=== PATIENT | male | born 2000 | race Caucasian/White ===

== ENCOUNTER 2022-02-20 12:30 | Outpatient (REF) | payer OTHER, SELFPAY ==
[2022-02-20 13:58] LABS: MANUAL DIFF FLAG NO
[2022-02-20 14:06] LABS: Basophils Absolute Auto 0.1 X10*3/uL (0.0-0.2); Basophils Percent Auto 0.8 % (0-2); Eosinophils Absolute Auto 0.1 X10*3/uL (0.0-0.4); Hematocrit 48.3 % (42.0-52.0); Hemoglobin 16.3 g/dl (14.0-18.0); Imm Gran Abs Auto 0.01 X10*3/uL (0.00-0.03); Imm Gran Pct Auto 0.2 % (0.0-0.4); Lymphocytes Absolute Auto 2.4 X10*3/uL (1.2-4.9); Lymphocytes Percent Auto 39.5 % (20-40); Mean Corpuscular HGB Conc 33.7 g/dl (31.0-36.0); Mean Corpuscular Hemoglobin 29.9 pg (27.0-33.0); Mean Corpuscular Volume 88.5 fL (80.0-98.0); Mean Platelet Volume 11.2 fL (9.4-12.4); Monocytes Absolute Auto 0.6 X10*3/uL (0.1-1.2); Neutrophils Percent Auto 48.5 % (45-73); Platelet Count 281 X10*3/uL (160-400); Red Blood Count 5.46 X10*6/uL (4.60-5.80); Red Cell Distribution Width 12.4 % (11.0-16.0); White Blood Count 6.1 X10*3/uL (4.8-10.8)
[2022-02-20 15:05] LABS: Alanine Aminotransferase 41 U/L (0-40); Albumin Level 4.2 g/dL (3.5-5.0); Alkaline Phosphatase 76 U/L (39-117); Anion Gap 14 (12-20); Aspartate Amino Transferase 18 U/L (5-37); Bilirubin Total 0.4 mg/dL (0.0-1.0); Blood Urea Nitrogen 12 mg/dL (9-16); Calcium 9.8 mg/dL (8.4-10.2); Carbon Dioxide 23 mmol/L (22-29); Chloride 107 mmol/L (96-108); Estimated Glomerular Filt Rate > 60; Glucose Random 118 mg/dL (60-115); Potassium 4.4 mmol/L (3.3-5.1); Sodium 140 mmol/L (135-145); Total Protein 7.3 g/dL (6.5-8.0)
[2022-02-20 16:08] LABS: Amphetamine Screen Urine POSITIVE (Not Detect); Barbiturates, Urine Not Detected (Not Detect); Benzodiazepines Screen Urine Not Detected (Not Detect); Cannabinoid Screen Urine Not Detected (Not Detect); Cocaine Screen Urine Not Detected (Not Detect); Fentanyl, urine Not Detected (Not Detect); Opiate Screen Urine Not Detected (Not Detect); Phencyclidine Screen Urine Not Detected (Not Detect)
[2022-02-27 08:03] LABS: Codeine, Ur NEGATIVE; Hydrocodone, Ur NEGATIVE; Hydromorphone, Ur NEGATIVE; Morphine, Ur NEGATIVE; Norhydrocodone, Ur NEGATIVE; Noroxycodone, Ur NEGATIVE; Oxycodone, Ur NEGATIVE; Oxymorphone, Ur NEGATIVE
[2022-02-27 10:31] LABS: EDDP (Methadone Metabolite) negative; Methadone, Urine MS negative
== END 2022-02-20 12:31 | disposition home or self-care (01) ==
LOC: HO.HMGCLDS 12:30
PROVIDERS: PCP Registered Nurse Psychiatric/Mental Health, Child & Adolescent; Visit Provider Nurse Practitioner Psychiatric/Mental Health
DX: Z51.81 Encounter for therapeutic drug level monitoring (principal); Z79.899 Other long term (current) drug therapy
CPT/HCPCS: 80053; 80307; 80358; 80364; 80365; 85025

== ENCOUNTER 2022-03-27 08:36 | Outpatient (REF) | payer OTHER, SELFPAY ==
[2022-04-03 08:30] LABS: Lithium < 0.10 mmol/L (0.60-1.20)
== END 2022-03-27 08:37 | disposition home or self-care (01) ==
LOC: HO.HMGCLDS 08:36
PROVIDERS: Visit Provider Nurse Practitioner Psychiatric/Mental Health
DX: Z79.899 Other long term (current) drug therapy (principal)
CPT/HCPCS: 36415; 80178

== ENCOUNTER 2024-04-03 13:44 | Emergency (ER) | payer OTHER, SELFPAY ==
--- NOTE | ~2024-04-03 | US_ITS ---
EXAMINATION: US ABDOMEN LIMITED CLINICAL INFORMATION: Upper abdominal pain. COMPARISON: None available. TECHNIQUE: Real-time imaging of the right upper quadrant abdominal viscera. The examination is partially limited by patient body habitus. FINDINGS: PANCREAS: Normal. LIVER: The liver is diffusely hyperechoic and this limits evaluation of the deeper tissues. No sonographic evidence of focal lesion or intrahepatic ductal dilatation. GALLBLADDER: Normal. The gallbladder is physiologically distended without evidence of stones, sludge, polyps, wall thickening or pericholecystic fluid. COMMON BILE DUCT: The common duct is not optimally seen. The suspected common duct is 0.5 cm diameter. RIGHT KIDNEY: Grossly normal. No hydronephrosis. No renal calculi or focal parenchymal lesions. The kidney measures 11.5 cm in maximum dimension. FREE FLUID: None. US/US abdomen limited IMPRESSION: * Diffuse hepatic steatosis. * No acute sonographic abnormalities. No evidence of cholelithiasis, cholecystitis or biliary tract obstruction.
[2024-04-03 14:04] VITALS: BP 129/80; PULSE 84; RESP 16; TEMP 37.1; O2SAT 96; BMI 47.7
--- NOTE | 2024-04-03 14:04 | ED.ABDPAIN ---
HPI - Abdominal Pain General Chief Complaint: Abdominal Pain Stated Complaint: Abd pain 5 days Time Seen by Provider: 04/03/24 15:49 Source: patient Mode of arrival: ambulatory Limitations: no limitations History of Present Illness ED Provider: Salvador Biswas NP HPI narrative: Patient is a 23-year-old male who presents to the emergency department for evaluation of intermittent epigastric pain that typically last a few hours. It is experienced at night while lying down. He states that he typically eats dinner around 9 or 10 at night and his symptoms began soon after when he is lying down. It is described as a burning sensation. He admits to having heartburn during the day for which he will typically take Tums. He denies associated fevers, chills, nausea, vomiting, diarrhea. He reports that he was seen at [facility] 6 days ago for similar pain, that he believed to be secondary to constipation, however he admits to having daily bowel movements, he states he was offered to have imaging performed but denied as it was early in the morning by the time that he was seen, and his lab work was normal. Related Data Previous Rx's ?Medication ?Instructions ?Recorded omeprazole 20 mg capsule,delayed 20 mg PO DAILY #30 caps 04/03/24 release Allergies Allergy/AdvReac Type Severity Reaction Status Date / Time No Known Allergies Allergy Verified 04/03/24 15:19 Review of Systems Review of Systems Yes all other systems are reviewed and are negative PMFSH Past Medical History Attestation statement: The following information was validated with the patient. Source: old records reviewed Social History Social History Smoked in Last 30 Days: No Advance Directives: No Advance Directives Information Provided: No Do you have a plan to hurt others: No Plan Physical Exam ED Vital Signs: Vital Signs - 24 hr 04/03/24 14:04 04/03/24 15:16 04/03/24 15:23 Temperature 98.8 F 98.4 F 98.4 F Pulse Rate 84 87 87 Respiratory Rate 16 16 16 Blood Pressure 129/80 113/60 113/60 Pulse Oximetry 96 96 97 Oxygen Delivery Method Room Air Room Air Room Air 04/03/24 16:15 Temperature 98.1 F Pulse Rate 86 Respiratory Rate 16 Blood Pressure 121/76 Pulse Oximetry 94 Oxygen Delivery Method Room Air BMI result Body Mass Index 50.1 Appearance: Alert.?Oriented to person, place and time. No acute distress.?Normal affect. Eyes: Pupils equal, round and reactive to light.? ENT: Pharynx normal.?? Neck: Normal inspection.? Neck supple.?? CVS: Heart sounds normal. Normal heart rate and rhythm.? Pulses normal.?? Respiratory: No respiratory distress.? Lung sounds clear to auscultation bilaterally?? Abdomen: Soft and non-tender. No CVA tenderness. Negative Jin sign. Normoactive bowel sounds. No pulsatile mass.?? Skin: Skin warm and dry.? Normal skin color.?? Extremities: No lower extremity edema.? Neuro: Moves all extremities spontaneously. Sensation intact bilaterally. Ambulates with normal steady gait. Course Course Course Narrative: This is a Rapid Medical Exam performed in triage by Keily Romo PA-C. Full HPI, ROS and PE to be performed by primary ED provider. 23 year-old M w/ no sig PMHx presenting to the ED c/o upper abdominal pain x few days, described as ripping . Admits was seen at [facility] Sunday night for constipation. denies abd surgeries. denies N/V. admits to having regular BM's now. denies any imaging at [facility] labs were WNL PE: abdomen soft w/mild upper ttp. no rebound or guarding. nontoxic appearing. lower suspicion for dissection Plan: EKG, labs, UA, US ordered Medical Decision Making Medical Decision Making MDM Narrative: Patient is a 23-year-old male who presents to emergency department for evaluation of epigastric pain as per HPI. Overall he appears well, nontoxic, afebrile. He is without tachycardia tachypnea or hypoxia. He is speaking clear full sentences. Has no respiratory distress. He reports improvement in his pain at this time compared to his arrival to the ED no not completely resolved. His abdominal examination is benign he has no tenderness. On review of his labs CBC is without leukocytosis anemia or thrombocytopenia. No electrolyte derangement. No REGGIE. LFTs with mild elevation of ALT at 44, otherwise unremarkable. High sensitive troponin is within normal range. Urinalysis not consistent with urinary tract infection nor any microscopic hematuria. An ultrasound of the right upper quadrant was obtained, no acute biliary pathology, there is notation of fatty liver. Patient was made aware of these findings. He states that he plans to make significant changes to his diet in the near future as beginning a weight loss program. I suspect that his symptoms are most consistent with acid reflux/GERD, unlikely to be added ulcer. Patient received a GI cocktail in the department with resolution of symptoms and tolerating oral intake. Recommended course of antacid and outpatient follow-up with his primary care provider. He and his mother verbalized understanding. Discussed worrisome signs and symptoms that would warrant re-evaluation in the emergency department. Stable for discharge Differential Diagnosis Differential Diagnoses: The differential diagnosis associated with the presentation includes (See narrative above) Admission/Observation Consideration of admission/observation: Escalation of care including admission/observation considered (See narrative above) Lab Data MDM Lab Attestation statement: I reviewed the patient's lab results. (See narrative above) 04/03/24 14:42 04/03/24 14:42 Labs: Lab Results 04/03/24 04/03/24 Range/Units 14:42 14:47 WBC 7.3 (4.8-10.8) X10*3/uL RBC 5.46 (4.60-5.80) X10*6/uL Hgb 16.7 (14.0-18.0) g/dl Hct 46.8 (42.0-52.0) % MCV 85.7 (80.0-98.0) fL MCH 30.6 (27.0-33.0) pg MCHC 35.7 (31.0-36.0) g/dl RDW 12.4 (11.0-16.0) % Plt Count 289 (160-400) X10*3/uL MPV 10.4 (9.4-12.4) fL Immature Gran % (Auto) 0.1 (0.0-0.4) % Neut % (Auto) 55.4 (45-73) % Lymph % (Auto) 33.2 (20-40) % [place] % (Auto) 8.7 (2-11) % Eos % (Auto) 1.9 (0-4) % Baso % (Auto) 0.7 (0-2) % Lymph # (Auto) 2.4 (1.2-4.9) X10*3/uL [place] # (Auto) 0.6 (0.1-1.2) X10*3/uL Eos # (Auto) 0.1 (0.0-0.4) X10*3/uL Baso # (Auto) 0.1 (0.0-0.2) X10*3/uL Abs Immat Gran (auto) 0.01 (0.00-0.03) X10*3/uL Absolute Neuts (auto) 4.1 (2.0-8.3) x10*3/uL Absolute Nucleated RBC 0.000 (0.0-0.012) X10*3/uL Nucleated RBC % (auto) 0.0 (0.0-0.2) /100WBC Sodium 141 (135-145) mmol/L Potassium 3.8 (3.3-5.1) mmol/L Chloride 106 (96-108) mmol/L Carbon Dioxide 27 (22-29) mmol/L Anion Gap 12 (12-20) BUN 11 (9-16) mg/dL Creatinine 0.78 (0.5-1.4) mg/dL Estim Creat Clear Calc 199.5 Estimated GFR > 60 Random Glucose 106 (60-115) mg/dL Calcium 9.9 (8.4-10.2) mg/dL Magnesium 1.8 (1.6-2.6) mg/dL Total Bilirubin 0.6 (0.0-1.0) mg/dL Direct Bilirubin 0.2 (0.0-0.5) mg/dL AST 25 (5-37) U/L ALT 44 H (0-40) U/L Alkaline Phosphatase 67 (39-117) U/L Troponin I High Sens < 2.7 (<3.5-35.0) ng/L Total Protein 7.9 (6.5-8.0) g/dL Albumin 4.5 (3.5-5.0) g/dL Lipase 15 (8-78) U/L Urine Color Dark Yellow Urine Appearance Clear Urine pH 6.0 (5.0-9.0) Ur Specific [place] >= 1.030 H (1.005-1.025) Urine Protein Trace (Neg-Trace) mg/dL Urine Glucose (UA) Negative (Negative) mg/dL Urine Ketones Trace (Negative) mg/dL Urine Blood Negative (Negative) Urine Nitrite Negative (Negative) Ur Leukocyte Esterase Negative (Negative) Independent Interpretation I performed an independent interpretation of an: EKG and Ultrasound (No cholelithiasis) Interpretation: Rate: 84 Rhythm:? Normal sinus rhythm Normal P waves.? Normal BOSSMAN.?? Normal QRS complex.?? ST T wave :??No ST elevation depression, no T-wave inversion qTC: 382 The study has been interpreted contemporaneously by me. Radiology Impression Discussion of test interpretation with radiology: I have reviewed the radiologist's reading. Radiologist Impression: US/US abdomen limited IMPRESSION: * Diffuse hepatic steatosis. * No acute sonographic abnormalities. No evidence of cholelithiasis, cholecystitis or biliary tract obstruction. Independent Historian Clinical information obtained from an independent historian. History obtained from or confirmed by: Parent (Mother who confirms history) Prescription Management I considered prescription management with: Other (See narrative above) Discharge Plan Discharge Clinical Impression: Gastritis, Hepatic steatosis Patient Disposition: Home, Self-Care Instructions: Gastritis (ED), Diet for Stomach Ulcers and Gastritis (ED) Additional Instructions: Take Prilosec daily as prescribed for at least 2 weeks. Avoid triggers such as fatty foods, spicy foods, tomatoes, onions, coffee, tea, chocolate, and alcohol. Remaining upright after meals for 1-2 hours. Avoid eating at least 3 hours before bedtime. Try sleeping on an incline if possible. Follow-up with your primary care provider; make them aware of the fatty liver that was noted on ultrasound, and discuss with them any further symptoms after course of Prilosec. Return back to emergency department any new or worsening symptoms or concerns. Prescriptions: New omeprazole 20 mg capsule,delayed release(DR/EC) 20 mg PO DAILY Qty: 30 0RF Referrals: Physician,Unknown J [Primary Care Provider] - Print Language: [place]aguayan
--- NOTE | 2024-04-03 14:08 | ECG_ITS ---
Test Reason : abd pain Blood Pressure : / mmHG Vent. Rate : 084 BPM Atrial Rate : 084 BPM P-R Int : 124 ms QRS Dur : 094 ms QT Int : 324 ms P-R-T Axes : 027 008 031 degrees QTc Int : 382 ms Normal sinus rhythm Normal ECG No previous ECGs available Referred By: Keily Romo Electronically Signed By:Jose Miguel Martinez
[2024-04-03 14:57] LABS: MANUAL DIFF FLAG NO
[2024-04-03 14:59] LABS: Basophils Absolute Auto 0.1 X10*3/uL (0.0-0.2); Basophils Percent Auto 0.7 % (0-2); Eosinophils Absolute Auto 0.1 X10*3/uL (0.0-0.4); Eosinophils Percent Auto 1.9 % (0-4); Hematocrit 46.8 % (42.0-52.0); Hemoglobin 16.7 g/dl (14.0-18.0); Imm Gran Abs Auto 0.01 X10*3/uL (0.00-0.03); Imm Gran Pct Auto 0.1 % (0.0-0.4); Lymphocytes Absolute Auto 2.4 X10*3/uL (1.2-4.9); Lymphocytes Percent Auto 33.2 % (20-40); Mean Corpuscular HGB Conc 35.7 g/dl (31.0-36.0); Mean Corpuscular Hemoglobin 30.6 pg (27.0-33.0); Mean Corpuscular Volume 85.7 fL (80.0-98.0); Mean Platelet Volume 10.4 fL (9.4-12.4); Monocytes Absolute Auto 0.6 X10*3/uL (0.1-1.2); Monocytes Percent Auto 8.7 % (2-11); Neutrophils Absolute Auto 4.1 x10*3/uL (2.0-8.3); Neutrophils Percent Auto 55.4 % (45-73); Platelet Count 289 X10*3/uL (160-400); Red Blood Count 5.46 X10*6/uL (4.60-5.80); Red Cell Distribution Width 12.4 % (11.0-16.0); White Blood Count 7.3 X10*3/uL (4.8-10.8)
[2024-04-03 15:04] LABS: Appearance Urine Clear; Color Urine Dark Yellow; Glucose Urine UA Negative (Negative); Leukocyte Esterase Urine Negative (Negative); Nitrite Urine Negative (Negative); Specific Gravity - Urine >= 1.030 (1.005-1.025); Urine Blood Negative (Negative); Urine Ketones Trace mg/dL (Negative); Urine Protein Trace mg/dL (Neg-Trace)
[2024-04-03 15:13] LABS: Alanine Aminotransferase 44 U/L (0-40); Albumin Level 4.5 g/dL (3.5-5.0); Alkaline Phosphatase 67 U/L (39-117); Anion Gap 12 (12-20); Aspartate Amino Transferase 25 U/L (5-37); Bilirubin Direct 0.2 mg/dL (0.0-0.5); Bilirubin Total 0.6 mg/dL (0.0-1.0); Blood Urea Nitrogen 11 mg/dL (9-16); Calcium 9.9 mg/dL (8.4-10.2); Carbon Dioxide 27 mmol/L (22-29); Chloride 106 mmol/L (96-108); Creatinine Clr Calc Pharmacy 199.5; Estimated Glomerular Filt Rate > 60; Glucose Random 106 mg/dL (60-115); Lipase 15 U/L (8-78); Magnesium 1.8 mg/dL (1.6-2.6); Potassium 3.8 mmol/L (3.3-5.1); Sodium 141 mmol/L (135-145); Total Protein 7.9 g/dL (6.5-8.0)
[2024-04-03 15:16] VITALS: BP 113/60; PULSE 87; RESP 16; TEMP 36.9; O2SAT 96; BMI 50.1
[2024-04-03 15:21] LABS: Troponin-I High Sensitivity < 2.7 ng/L (<3.5-35.0)
[2024-04-03 15:23] VITALS: BP 113/60; PULSE 87; RESP 16; TEMP 36.9; O2SAT 97
--- NOTE | 2024-04-03 15:33 | PC.NURSE ---
Pt from waiting area, arrives with c/o abd pain. Pt states pain began on 03/28/24 and is intermittent. Pain fluctuates from a 4 up to a 9 and is a tearing feeling. A&Ox3, VSS, and afebrile. Labs pending. Pt is resting comfrtably in bed with mother at bedside.
[2024-04-03 16:15] VITALS: BP 121/76; PULSE 86; RESP 16; TEMP 36.7; O2SAT 94
[2024-04-03] MEDS: Famotidine 20 MG TABLET PO (16:41)
[2024-04-03] MEDS: Lidocaine HCl Viscous 2 % 15 ML SOLUTION MUCOUS MEM (16:41)
[2024-04-03] MEDS: Magnesium Hydrox/Alum Hydrox 30 ML ORAL.SUSP PO (16:41)
[2024-04-03 17:26] VITALS: BP 121/76; PULSE 86; RESP 16; TEMP 36.7
[2024-04-03 18:19] VITALS: BP 121/76; PULSE 86; RESP 16; TEMP 36.7
== END 2024-04-03 18:20 | disposition home or self-care (01) ==
PROVIDERS: Physician Assistant; Emergency Provider Internal Medicine
DX: K29.70 Gastritis, unspecified, without bleeding (principal); K76.0 Fatty (change of) liver, not elsewhere classified; R10.10 Upper abdominal pain, unspecified
CPT/HCPCS: 36415; 76705; 80048; 80076; 81003; 83690; 83735; 84484; 85025; 93005; 99284; 99285

== ENCOUNTER → 2024-04-03 14:08 | Outpatient (BNV) | payer OTHER, SELFPAY | PROVIDERS: Emergency Provider Internal Medicine; Visit Provider Internal Medicine Cardiovascular Disease | DX: R10.9 Unspecified abdominal pain (principal) | CPT/HCPCS: 93010 ==

== ENCOUNTER 2024-12-22 08:26 | Emergency (ER) | payer OTHER, SELFPAY ==
--- NOTE | ~2024-12-22 | XR_ITS ---
EXAMINATION: XR CHEST CLINICAL INFORMATION: cp COMPARISON: None available. TECHNIQUE: 2 views of the chest were obtained. FINDINGS: The cardiac, hilar, and mediastinal contours are normal. The lungs are clear bilaterally. There is no pneumothorax or pleural effusion. There is no focal osseous or soft tissue abnormality. XR/XR chest 2V IMPRESSION: Normal chest. Electronically signed by: Adeel Li MD 12/22/2024 09:08 AM EDT
[2024-12-22 08:50] VITALS: BP 140/86; PULSE 82; RESP 19; TEMP 36.6; O2SAT 98; BMI 40.9
--- NOTE | 2024-12-22 08:53 | ECG_ITS ---
Test Reason : CP Blood Pressure : */* mmHG Vent. Rate : 78 BPM Atrial Rate : 78 BPM P-R Int : 144 ms QRS Dur : 96 ms QT Int : 342 ms P-R-T Axes : 26 19 48 degrees QTcB Int : 389 ms Normal sinus rhythm Normal ECG When compared with ECG of 03-Apr-2024 14:32, No significant change was found Referred By: Generic ED Physician Electronically Signed By: KAMRAN BEAR
[2024-12-22 09:24] LABS: MANUAL DIFF FLAG NO
[2024-12-22 09:26] LABS: Basophils Absolute Auto 0.1 X10*3/uL (0.0-0.2); Basophils Percent Auto 0.8 % (0-2); Eosinophils Absolute Auto 0.2 X10*3/uL (0.0-0.4); Eosinophils Percent Auto 2.4 % (0-4); Hematocrit 46.8 % (42.0-52.0); Hemoglobin 16.4 g/dl (14.0-18.0); Imm Gran Abs Auto 0.02 X10*3/uL (0.00-0.03); Imm Gran Pct Auto 0.2 % (0.0-0.4); Lymphocytes Absolute Auto 4.1 X10*3/uL (1.2-4.9); Lymphocytes Percent Auto 47.6 % (20-40); Mean Corpuscular Hemoglobin 30.8 pg (27.0-33.0); Mean Corpuscular Volume 87.8 fL (80.0-98.0); Mean Platelet Volume 10.1 fL (9.4-12.4); Monocytes Absolute Auto 0.8 X10*3/uL (0.1-1.2); Monocytes Percent Auto 9.7 % (2-11); Neutrophils Absolute Auto 3.4 x10*3/uL (2.0-8.3); Neutrophils Percent Auto 39.3 % (45-73); Platelet Count 260 X10*3/uL (160-400); Red Blood Count 5.33 X10*6/uL (4.60-5.80); Red Cell Distribution Width 12.4 % (11.0-16.0); White Blood Count 8.7 X10*3/uL (4.8-10.8)
[2024-12-22 09:44] LABS: Alanine Aminotransferase 40 U/L (0-40); Albumin Level 4.2 g/dL (3.5-5.0); Alkaline Phosphatase 77 U/L (39-117); Anion Gap 9 (12-20); Aspartate Amino Transferase 23 U/L (5-37); Bilirubin Direct 0.2 mg/dL (0.0-0.5); Bilirubin Total 0.4 mg/dL (0.0-1.0); Blood Urea Nitrogen 11 mg/dL (9-16); Calcium 9.1 mg/dL (8.4-10.2); Carbon Dioxide 30 mmol/L (22-29); Chloride 107 mmol/L (96-108); Creatinine Clr Calc Pharmacy 188.5; Estimated Glomerular Filt Rate > 60; Glucose Random 106 mg/dL (60-115); Potassium 3.6 mmol/L (3.3-5.1); Sodium 142 mmol/L (135-145); Total Protein 7.7 g/dL (6.5-8.0)
[2024-12-22 10:05] LABS: Troponin-I High Sensitivity < 2.7 ng/L (<3.5-35.0)
[2024-12-22 13:16] VITALS: BP 133/84; PULSE 81; RESP 18; TEMP 36.8; O2SAT 98
--- NOTE | 2024-12-22 13:18 | PC.NURSE ---
pt comes in from home with reports of chest pain radiating to his left arm which have been on and off for a couple of weeks. he denies SOB. he states he does not have a hx of similar episodes. In room pt placed on tele - NSR on monitor. awaiting provider pickup. labs and EKG completed in triage
--- NOTE | 2024-12-22 13:26 | ED_ITS ---
HPI - Chest Pain General Chief Complaint: Chest Pain Stated Complaint: pain mid l arm and other issues Time Seen by Provider: 12/22/24 13:23 Source: patient Mode of arrival: ambulatory Limitations: no limitations History of Present Illness ED Provider: Devi Summers PA-C HPI narrative: Patient is a 24 year old male with a past medical history of gastritis, fatty liver, ADHD, PTSD, who presents to the ED for chest pain and left arm pain. Patient states that he was recently diagnosed here in the ED with Gastritis and fatty liver which is when these symptoms began. He states that since then he has been more conscious of and anxious about his health. He states he experiences intermittent discomfort that he describes as pressure of the left side of his chest and over the left bicep. He also endorses some occasional discomfort of his neck he attributes to sleeping position. The pain occurs at random times and does not occur/increase with exertion. He denies swelling or parasthesias of the left extremity. Denies recent injuries. Denies syncope, shortness of breath, abdominal pain, nausea, vomiting. MD complaint: chest pain Onset (ago): month(s) Timing of current episode: episodic Onset: during rest Pain location: left chest Pain radiation: none Quality: tightness Relieving factors: nothing Exacerbating factors: nothing Related Data Previous Rx's ?Medication ?Instructions ?Recorded omeprazole 20 mg capsule,delayed 20 mg PO DAILY #30 caps 04/03/24 release Allergies Allergy/AdvReac Type Severity Reaction Status Date / Time No Known Allergies Allergy Verified 12/22/24 08:53 Review of Systems 2 Review of Systems: Yes all other systems are reviewed and are negative Constitutional: Constitutional: Reports no additional constitutional complaints, Denies chills, Denies fever(s) and Denies night sweats Eyes: Eyes: Reports no additional eye complaints, Denies blurry vision, Denies change in vision, Denies diplopia, Denies eye discharge, Denies loss of vision and Denies eye pain ENT: Denies dizziness Cardiovascular: Cardiovascular: Reports no additional cardiovascular complaints, Reports chest pain (now resolved), Denies lightheadedness, Denies Loss of Consciousness and Denies dyspnea Respiratory: Respiratory: Reports no additional respiratory complaints and Denies dyspnea Gastrointestinal: Gastrointestinal: Reports no additional gastrointestinal complaints, Denies abdominal pain, Denies melena, Denies hematochezia, Denies change in bowel habits and Denies change in stool character Genitourinary: Genitourinary: Reports no additional male genitourinary complaints, Denies hematuria, Denies oliguria, Denies difficulty urinating, Denies dysuria, Denies urinary frequency, Denies urinary hesitancy, Denies urinary incontinence and Denies urinary urgency Musculoskeletal: Musculoskeletal: Reports as per HPI, Denies numbness and Denies tingling Neurologic: Denies dizziness, Denies loss of vision, Denies numbness and Denies tingling Psychiatric: Psychiatric: Reports no additional psychiatric complaints Endocrine: Endocrine: Reports no additional endocrine complaints Hematologic/Lymphatic: Hematologic/Lymphatic: Reports no additional hematologic/lymphatic complaints Allergic/Immunologic: Allergic/Immunologic: Reports no additional allergic/immunologic complaints PMFSH Past Medical History Attestation statement: The following information was validated with the patient. Source: old records reviewed and nursing notes reviewed Social History Social History Alcohol intake: current Alcohol intake frequency: holidays/special occasions only Use of substances other than those prescribed or required for medical reasons: No Advance Directives: No Advance Directives Information Provided: Yes Do you have a plan to hurt others: No Plan Physical Exam 2 Vital Signs: Vital Signs: Last Vital Signs Temp 98.3 F 12/22/24 13:16 Pulse 81 12/22/24 13:16 Resp 18 12/22/24 13:16 BP 133/84 12/22/24 13:16 Pulse Ox 98 12/22/24 13:16 O2 Del Method Room Air 12/22/24 13:16 BMI result Body Mass Index 40.9 Const: General: cooperative, no acute distress, alert and awake Nutritional Appearance: well nourished Orientation/consciousness: patient oriented x3 Limitations: no limitations HEENT: Head: Yes normal to inspection and Yes atraumatic Ears: hearing grossly normal bilaterally and external ears normal General nose exam: Normal external nose present, no nasal discharge noted and no epistaxis Face and sinus: Yes normal facial exam, No abrasion and No laceration Mouth: Normal oral and palatal mucosa present, no drooling and no muffled voice Eyes: General: appearance normal, both eyes and all related structures P eriorbital: periorbital findings normal Eyelids: Yes eyelids normal C onjunctivae: conjunctivae normal Pupils: Equal, round and reactive pupils present EOM: EOMs intact bilaterally Neck: Neck: Yes normal visual inspection, Yes full ROM and Yes no lymphadenopathy Chest: Chest palpation & inspection: normal inspection of the chest and normal palpation of entire chest wall Resp: Effort & Inspection: normal respiratory effort and able to speak in complete sentences Auscultation: clear to auscultation bilaterally Cardio: Rate: regular rate Rhythm: regular rhythm Heart sounds: S1 normal heart sound present, S2 normal heart sound present, no gallops and no murmurs GI: Inspection: Yes normal to inspection Neuro: General: patient oriented x3, moves all extremities and CN's II-XI intact bilaterally Cranial nerves: Yes Equal, round and reactive pupils present Cognition (Neuro): normal cognition Extrem: General: Yes normal to inspection, Yes full ROM and Yes capillary refill normal Psych: Appearance: grossly normal Mental Status: mental status grossly normal Affect: normal affect Attitude: cooperative Thought process: N ormal thought process present Thought content: Normal thought content present Insight: Good insight present (Psych) Medical Decision Making Medical Decision Making MDM Narrative: Patient is a 24 year old assigned male at with a history of gastritis, anxiety, and ADHD presenting to the emergency department today with intermittent chest and left bicep pain. Patient's physical exam was unremarkable. Patient's blood work was unremarkable. Patient's EKG was unremarkable. Patient's chest x- ray showed no acute process. I explained my physical exam findings as well as all test results to the patient. I answered all questions asked by the patient. I stressed the importance of the patient taking his medication as directed (either prescribed or as the over the counter packaging recommends). I stressed the importance of the patient following up with his primary care provider. I stressed the importance of the patient returning to the emergency department immediately if his symptoms were to worsen or if he were to develop any dizziness, shortness of breath, difficulty breathing, chest pain, blurry vision, loss of vision, nausea, vomiting, abdominal pain, fever, chills, back pain, or any other complaints. Patient verbalized agreement and understanding with this treatment plan and discharge. Differential Diagnosis Differential Diagnoses: The differential diagnosis associated with the presentation includes Chest wall pain Chest pain NSTEMI STEMI Atypical chest pain Admission/Observation Consideration of admission/observation: Escalation of care including admission/observation considered Patient would have been admitted to the hospital had his work up had any findings where hospital admission was appropriate and his clinical presentation warranted hospital admission. Lab Data [facility] Lab Attestation statement: I reviewed the patient's lab results. My interpretation of these results are in the [facility] Rationale portion of this note. 12/22/24 09:19 12/22/24 09:19 Labs: Lab Results 12/22/24 Range/Units 09:19 WBC 8.7 (4.8-10.8) X10*3/uL RBC 5.33 (4.60-5.80) X10*6/uL Hgb 16.4 (14.0-18.0) g/dl Hct 46.8 (42.0-52.0) % MCV 87.8 (80.0-98.0) fL MCH 30.8 (27.0-33.0) pg MCHC 35.0 (31.0-36.0) g/dl RDW 12.4 (11.0-16.0) % Plt Count 260 (160-400) X10*3/uL MPV 10.1 (9.4-12.4) fL Immature Gran % (Auto) 0.2 (0.0-0.4) % Neut % (Auto) 39.3 L (45-73) % Lymph % (Auto) 47.6 H (20-40) % Leake % (Auto) 9.7 (2-11) % Eos % (Auto) 2.4 (0-4) % Baso % (Auto) 0.8 (0-2) % Lymph # (Auto) 4.1 (1.2-4.9) X10*3/uL Leake # (Auto) 0.8 (0.1-1.2) X10*3/uL Eos # (Auto) 0.2 (0.0-0.4) X10*3/uL Baso # (Auto) 0.1 (0.0-0.2) X10*3/uL Abs Immat Gran (auto) 0.02 (0.00-0.03) X10*3/uL Absolute Neuts (auto) 3.4 (2.0-8.3) x10*3/uL Absolute Nucleated RBC 0.000 (0.0-0.012) X10*3/uL Nucleated RBC % (auto) 0.0 (0.0-0.2) /100WBC Sodium 142 (135-145) mmol/L Potassium 3.6 (3.3-5.1) mmol/L Chloride 107 (96-108) mmol/L Carbon Dioxide 30 H (22-29) mmol/L Anion Gap 9 L (12-20) BUN 11 (9-16) mg/dL Creatinine 0.75 (0.5-1.4) mg/dL Estim Creat Clear Calc 188.5 Estimated GFR > 60 Random Glucose 106 (60-115) mg/dL Calcium 9.1 D (8.4-10.2) mg/dL Total Bilirubin 0.4 (0.0-1.0) mg/dL Direct Bilirubin 0.2 (0.0-0.5) mg/dL AST 23 (5-37) U/L ALT 40 (0-40) U/L Alkaline Phosphatase 77 (39-117) U/L Troponin I High Sens < 2.7 (<3.5-35.0) ng/L Total Protein 7.7 (6.5-8.0) g/dL Albumin 4.2 (3.5-5.0) g/dL Independent Interpretation I performed an independent interpretation of an: EKG and Plain X-Ray Interpretation: My interpretation is in agreement with the radiologist's impression of this imaging study. L EXAMINATION: XR CHEST CLINICAL INFORMATION: cp COMPARISON: None available. TECHNIQUE: 2 views of the chest were obtained. FINDINGS: The cardiac, hilar, and mediastinal contours are normal. The lungs are clear bilaterally. There is no pneumothorax or pleural effusion. There is no focal osseous or soft tissue abnormality. XR/XR chest 2V IMPRESSION: Normal chest. Electronically signed by: Adeel Li MD 12/22/2024 09:08 AM EDT Dictated By: Adeel Li MD Signed By: Electronically signed by Adeel Li MD 12/22/24 0908 I independently interpreted this EKG and am in agreement with the below findings: Vent. Rate: 78 BPM Atrial Rate: 78 BPM P-R Int: 144 ms QRS Dur: 96 ms QT Int: 342 ms P-R-T Axes: 26 19 48 degrees QTcB Int: 389 ms Normal sinus rhythm Normal ECG When compared with ECG of 03-Apr-2024 14:32, No significant change was found Referred By: Generic ED Physician Electronically Signed By: RAMANA BEAR Dictated By: Ramana Bear MD Signed By: Electronically signed by Ramana Bear MD 12/22/24 1126 Radiology Impression Discussion of test interpretation with radiology: I have reviewed the radiologist's reading. Discharge Plan Discharge Clinical Impression: Atypical chest pain Patient Disposition: Home, Self-Care Instructions: Noncardiac Chest Pain (ED) Additional Instructions: Follow up with your primary care provider. Return to the emergency department immediately if your symptoms worsen or if you develop any numbness, tingling, dizziness, shortness of breath, difficulty breathing, chest pain, blurry vision, loss of vision, nausea, vomiting, abdominal pain, fever, chills, back pain, or any other complaints. Please see the information below about our Patient Portal. If you are not yet enrolled in the [facility] Patient Portal, you will receive an enrollment email invitation following your visit to any [facility] care setting. You may also self-enroll in the Patient Portal by visiting our website: [email or web address] The following information is required to access the Patient Portal: - Your [facility] Medical Record Number - Your personal home email address (must match what is in your electronic medical record, Registration staff can assist with this) - Name - Date of Capabilities of the Patient Portal: - Message some providers - View upcoming appointments - Access your health summary, medical history, and visit history - View current conditions and allergies - View procedure and lab results - View your medications, including guidelines, side effects, and precautions - Complete pre-appointment questionnaires requested by your provider - Ready summary reports of your office visits and procedures To access the Patient Portal Mobile [employer], follow these directions: - Search oroeco in the [employer] Store or [employer] Store - Download the [employer] - Search for [facility] - Enter your login/password Prescriptions: No Action omeprazole 20 mg capsule,delayed release(DR/EC) 20 mg PO DAILY Qty: 30 0RF Referrals: Katina Briscoe NP [Primary Care Provider] - Discharge Date/Time: 12/22/24 14:08 Print Language: Spanish
--- OUTSIDE RECORDS SUMMARY | 2024-12-22 15:38 | XMS_ITS | Encounter Summary ---
Author Organization [facility] Address [address] [place] [phone] Phone Care Team Providers Care Council On Aging Director Name Role Phone Blas Gary MD Primary Care Provider [phone] Encounter Details Date Type Department Care Team (Late st Contact Info) Description 05/31/2017 Conversion Encounter [facility] [address] [place] [address] Social History Tobacco Use Types Packs/Day Years Used Date Smoking Tobacco: Never Comments:Never smoker Sex and Gender Information Value Date Recorded Sex Assigned at Male 04/12/2020 5:45 PM EDT Legal Sex Male 4:55 PM EDT Gender Identity Male 04/12/2020 5:45 PM EDT Sexual Orientation Straight 04/12/2020 5: 45 PM EDT documented as of this encounter Plan of Treatment Not on file documented as of this encounter Visit Diagnoses Not on filedocumented in this encounter Care Teams Council On Aging Director Relationship Specialty Start Date End Date Blas Gary MD [address] [place] [address] PCP - General Pediatrics 10/22/19 04/03/23 documented as of this encounter
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
--- OUTSIDE RECORDS SUMMARY | 2024-12-22 15:38 | XMS_ITS | Encounter Summary ---
Author Organization [facility] Address [address] [place] [phone] Phone Care Team Providers Care Beef Specialist Name Role Phone Blas Gary MD Primary Care Provider Encounter Details Date Type Department Care Team (Late st Contact Info) Description 01/21/2013 Documentation [facility] [address] [place] [address] Family Medicine, Physician [address] [place] [address] Social History Tobacco Use Types Packs/Day Years Used Date Smoking Tobacco: Never Assessed Sex and Gender Information Value Date Recorded Sex Assigned at Male 04/12/2020 5:45 PM EDT Legal Sex Male 4:55 PM EDT Gender Identity Male 04/12/2020 5:45 PM EDT Sexual Orientation Straight 04/12/2020 5: 45 PM EDT documented as of this encounter Plan of Treatment Not on file documented as of this encounter Visit Diagnoses Not on filedocumented in this encounter Care Teams Beef Specialist Relationship Specialty Start Date End Date Blas Gary MD [address] [place] [address] [place] [address] PCP - General Pediatrics 10/22/19 04/03/23 documented as of this encounter
--- OUTSIDE RECORDS SUMMARY | 2024-12-22 15:38 | XMS_ITS | Encounter Summary ---
Author Organization [facility] Address [address] [place] [phone] Phone Care Team Providers Care Us Administrative Law Judge Name Role Phone Blas Gary MD Primary Care Provider [phone] Encounter Details Date Type Department Care Team (Late st Contact Info) Description 12/18/2012 Documentation [facility] [place] Family Medicine [address] [place] [address] Family Medicine, Physician [address] [place] [address] Social History Tobacco Use Types Packs/Day Years [...] on filedocumented in this encounter Care Teams Us Administrative Law Judge Relationship Specialty Start Date End Date Blas Gary MD [address] [place] [address] [place] [id number] PCP - General Pediatrics 10/22/19 04/03/23 documented as of this encounter
--- OUTSIDE RECORDS SUMMARY | 2024-12-22 15:38 | XMS_ITS | Encounter Summary ---
Author Organization [facility] Address [address] [place] [phone] Phone Care Team Providers Care Skid Man Name Role Phone Blas Gary MD Primary Care Provider [phone] Encounter Details Date Type Department Care Team (Late st Contact Info) Description 03/04/[address] [facility] [place] [address] [place] [address] Family Medicine, Physician [address] [place] [address] Social History Tobacco Use Types Packs/Day Years [...] on filedocumented in this encounter Care Teams Skid Man Relationship Specialty Start Date End Date Blas Gary MD [address] [place] [address] [place] [address] PCP - General Pediatrics 10/22/19 04/03/23 documented as of this encounter
--- OUTSIDE RECORDS SUMMARY | 2024-12-22 15:38 | XMS_ITS | Encounter Summary ---
Author Organization [facility] Address [address] [place] [address] Phone Care Team Providers Care Interventional Radiology Technologist Name Role Phone Blas Gary MD Primary Care Provider [phone] Encounter Details Date Type Department Care Team (Late st Contact Info) Description 12/20/2012 Documentation [facility] [place] Family Medicine [address] [place] [address] Family Medicine, Physician [address] [place] [address] Social History Tobacco Use Types Packs/Day Years [...] on filedocumented in this encounter Care Teams Interventional Radiology Technologist Relationship Specialty Start Date End Date Blas Gary MD [address] [place] [address] [place] [address] PCP - General Pediatrics 10/22/19 04/03/23 documented as of this encounter
--- OUTSIDE RECORDS SUMMARY | 2024-12-22 15:38 | XMS_ITS | Clinical Summary ---
Author Organization [address] [place] [address] Address [address] [place] [address] Phone Care Team Providers Care Airworthiness Safety Inspector Name Role Phone Dionicio Gagnon MD Primary Care Provider [phone] Allergies No known active allergies Medications dextroamphetami ne sulfate (ZENZEDI) 7.5 mg tablet Take 1 tablet (7.5 mg total) by mouth 1 (one) time each day in the morning. Max Daily Amount: 7.5 mg 5 Active melatonin 5 mg tablet Take 1 tablet (5 mg total) by mouth at bedtime. 5 Active tirzepatide, weight loss, (Zepbound) 7.5 mg/0.5 mL injection Inject 0.5 mL (7.5 mg total) under the skin every 7 (seven) days for 28 days. 2 mL 5 01/15/20 25 Active tirzepatide, weight loss, (Zepbound) 5 mg/0.5 mL injectionIndica tions:Class 2 obesity due to excess calories without serious comorbidity with body mass index (BMI) of 39.0 to 39.9 in adult Inject 0.5 mL (5 mg total) under the skin every 7 (seven) days. 2 mL 1 5 12/18/19 25 Discontinued Encounters Date Type Department Care Team Description 12/17/2024 Telephone Bariatric Surgery [address] [address] Janny Middleton MD Med Refill (Zepbound) 11/06/2024 4:00 PM EST Office Visit Bariatric Surgery [address] [address] Janny Middleton MD Class 2 obesity due to excess calories without serious comorbidity with body mass index (BMI) of 39.0 to 39.9 in adult (Primary Dx) 10/20/2024 Telephone Bariatric Surgery [facility] [address] [phone] Janny Middleton MD prior auth (pa) from Last 3 Months Social History Tobacco Use Types Packs/Day Years Used Date Smoking Tobacco: Never Assessed Sex and Gender Information Value Date Recorded Sex Assigned at Not on file Legal Sex Male 11:02 AM EDT Gender Identity Not on file Sexual Orientation Not on file Last Filed Vital Signs Vital Sign Reading Time Taken Comments Blood Pressure 106/71 11/06/2024 3:51 PM EST Pulse 93 11/06/2024 3:51 PM EST Temperature 36.8 ??C (98.2 ??F) 11/06/2024 3:51 PM ES T Respiratory Rate - - Oxygen Saturation - - Inhaled Oxygen Concentration - - Weight 117 kg (257 lb) 11/06/2024 3:51 PM EST Height 172.7 cm (5' 8 ) 11/06/2024 3:51 PM EST Body Mass Index 39.08 11/06/2024 3:51 PM EST Plan of Treatment Upcoming Encounters Date Type Department Care Team (Late st Contact Info) Description 03/12/2025 4:00 PM EDT Office Visit Bariatric Surgery [facility] [address] [phone] Janny Middleton MD [address] [place] [phone] Health Maintenance Due Date Last Done Comments Pneumococcal Vaccine: Pediatrics (0 to 5 Years) and At-Risk Patients (6 to 64 Years) (1 of 1 - PPSV23) 2007 03/13/2003, 04/21/2002, 02/07/2002, Additional history exists Meningococcal B Vacine (1 of 2 - Standard) 2017 Depression Screening 05/16/2024 HIV Screening 05/16/2024 Hepatitis C Screening 05/16/2024 Social Influencers of Health Screening 05/16/2024 COVID-19 Vaccine ( season) 2024 10/10/2021, 03/02/2021, 02/02/2021 Influenza Vaccine (#1) 2024 , 06/07/2020, 07/09/2019, Additional history exists Cholesterol Screening (Lipid Panel) 04/21/2029 04/21/2024, 02/28/2021 DTaP,Tdap,and Td Vaccines (8 - Td or Tdap) 02/07/2034 02/08/2024, 01/02/2013, 11/13/2005, Additional history exists Hepatitis B Vaccines Completed 04/21/2002, 2001, 2001 HIB Vaccines Completed 03/13/2003, 05/2002, 02/07/2002, Additional history exists IPV Vaccines Completed 11/13/2005, 01/2002, 02/07/2002, Additional history exists MMR Vaccines Completed 11/13/2005, 10/10/2002 Varicella Vaccines Completed 11/21/2007, 10/10/2002 Hepatitis A Vaccines Completed 01/19/2015, 01/15/20 14 HPV Vaccines Completed 01/24/2016, 05/2015, 01/19/2015 Meningococcal ACWY Vaccine Completed 02/07/2018, RSV Immunization Patients Under 20 months Aged Out No longer eligible based on patient's age to complete this topic Procedures Procedure Name Priority Date/Time Associated Diagnosis Comments LIPID PANEL Routine 04/21/2024 from Last 3 Months or Most Recently Relevant to Health Maintenance Results * (ABNORMAL) Lipid panel (04/21/2024) LDL/HDL Ratio 4 <=4 Triglycerides 85 <=150 mg/dL Cholesterol 128 <=200 mg/dL HDL 36(A) >=40 mg/dL LDL Cholesterol 75 <=100 mg/dL Blood Venous blood specimen / Unknown us Historical Provider LAB BLOOD ORDERABLES Isamar l Result from Last 3 Months or Most Recently Relevant to Health Maintenance Insurance [facility] MEDICAID ADVANTAGE Care Teams Airworthiness Safety Inspector Relationship Specialty Start Date End Date Dionicio Gagnon MD [address] [facility] [address] [place] [address] PCP - General 04/10/24
--- OUTSIDE RECORDS SUMMARY | 2024-12-22 15:38 | XMS_ITS | Encounter Summary ---
Author Organization [facility] Address [address] [place] [phone] Care Team Providers Care Contract Law Specialist Name Role Phone Dionicio Gagnon MD Primary Care Provider [phone] Reason for Visit * Reason Onset Date Comments Med Refill 12/17/2024 Zepbound Encounter Details Date Type Department Care Team (Late st Contact Info) Description 12/17/2024 Telephone Bariatric Surgery - [place] [address] [phone] Janny Middleton MD [address] [phone] Med Refill (Zepbound) Social History Tobacco Use Types Packs/Day Years Used Date Smoking Tobacco: Never Assessed Sex and Gender Information Value Date Recorded Sex Assigned at Not on file Legal Sex Male 11:02 AM EDT Gender Identity Not on file Sexual Orientation Not on file documented as of this encounter Progress Notes * Maria C Stahl - 12/17/2024 11:20 AM EST Patient did well on Zepbound 5 mgs and would like a refill with titration. If appropriate, please send script for Zepbound 7.5 mgs to their pharmacy. The patient does have a follow up in 03/12/2025 documented in this encounter Plan of Treatment Upcoming Encounters Date Type Department Care Team (Late Contact Info) Description 03/12/2025 4:00 PM EDT Office Visit Bariatric Surgery - [place] [address] [phone] Janny Middleton MD [address] [phone] documented as of this encounter Visit Diagnoses Not on filedocumented in this encounter Care Teams Contract Law Specialist Relationship Specialty Start Date End Date Dionicio Gagnon MD [address] [phone] PCP - General 04/10/24 documented as of this encounter
== END 2024-12-22 14:08 | disposition home or self-care (01) ==
PROVIDERS: Emergency Provider Student in an Organized Health Care Education/Training Program; PCP Nurse Practitioner Family
DX: R07.89 Other chest pain (principal)
CPT/HCPCS: 36415; 71046; 80048; 80076; 84484; 85025; 93005; 99283; 99284

== ENCOUNTER → 2024-12-22 08:53 | Outpatient (BNV) | payer OTHER, SELFPAY | PROVIDERS: PCP Nurse Practitioner Family; Visit Provider Radiology Diagnostic Radiology | DX: R07.9 Chest pain, unspecified (principal) | CPT/HCPCS: 71046 ==

== ENCOUNTER → 2024-12-22 08:53 | Outpatient (BNV) | payer OTHER, SELFPAY | PROVIDERS: PCP Nurse Practitioner Family; Visit Provider Internal Medicine | DX: R07.9 Chest pain, unspecified (principal) | CPT/HCPCS: 93010 ==